=== PATIENT | male | born 1995 | race Asian ===

== ENCOUNTER 2024-09-18 22:07 | Emergency (ER) | payer OTHER, SELFPAY ==
[2024-09-18 22:16] VITALS: BP 146/93; PULSE 76; RESP 17; TEMP 36.6; O2SAT 99; BMI 31.0
--- NOTE | 2024-09-18 23:52 | ED.SKABFB ---
HPI - Skin/Abscess/Foreign Bdy General Chief complaint: Skin/Abscess/Foreign Body Stated complaint: lt finger inflamed Time Seen by Provider: 09/18/24 23:47 Source: patient Mode of arrival: Ambulatory History of Present Illness HPI narrative: Patient is a 29-year-old male here for evaluation of swelling and redness to the base of the nail of the left ring finger. He states that it started approximately 3 days ago when he pulled a hangnail. No interventions prior to arrival. Related Data Allergies Allergy/AdvReac Type Severity Reaction Status Date / Time No Known Drug Allergies Allergy Verified 09/18/24 22:16 Review of Systems Review of Systems Narrative: See HPI Patient History Social History Smoking Status: Never smoker Smoking Status: Never smoker Substance Use Type: does not use Exam Initial Vital Signs Initial Vital Signs: Vital Signs Temperature 97.8 F 09/18/24 22:16 Pulse Rate 76 09/18/24 22:16 Respiratory Rate 17 09/18/24 22:16 Blood Pressure 146/93 H 09/18/24 22:16 Pulse Oximetry 99 09/18/24 22:16 Oxygen Delivery Method Room Air 09/18/24 22:16 Skin Other: Patient with redness and purulent material around the base of the left ring finger Extrem Other: Paronychia left ring finger there was no swelling or tenderness of the pad of the finger. Course Vital Signs Vital signs: Vital Signs - 8 hr 09/18/24 22:16 Temperature 97.8 F Pulse Rate 76 Respiratory Rate 17 Blood Pressure 146/93 H Pulse Oximetry 99 Oxygen Delivery Method Room Air MDM - Skin/Abscess/Foreign Bdy MDM Narrative Medical decision making narrative: The paronychia was drained without issue. Patient reports an improvement of the pressure. Low suspicion for Felon based on his presentation today. Because the paronychia he was now drained there was no reason for antibiotics. Low suspicion for foreign body or fracture. Will hold on radiologic studies for now. Patient was given care instructions and return precautions. Discharge Plan Departure Patient Disposition: Home Clinical Impression: Paronychia Instructions: DI for Paronychia Activity Restrictions/Additional Instructions: Expect some continued drainage for the next 24 hours. You can wash your hands like normal using soap and water. Return to the emergency department for new or worsening symptoms. Stand Alone Forms: Patient Portal/API/Survey
== END 2024-09-18 23:58 | disposition home or self-care (01) ==
PROVIDERS: Emergency Provider Emergency Medicine
DX: L03.012 Cellulitis of left finger (principal)
CPT/HCPCS: 10060; 99281; 99282